=== PATIENT | female | born 1990 | race African-American/Black ===

== ENCOUNTER 2021-12-14 21:44 | Inpatient (IN) | payer OTHER ==
[~2021-12-14] VITALS: Ht 157.5 cm; Wt 71.8 kg
[2021-12-14] MEDS ORDERED: PRENTAB9 PO (22:17)
[2021-12-14] MEDS ORDERED: TUMS500C PO (22:17)
[2021-12-14 22:23] VITALS: BP 128/81
[2021-12-14] MEDS ORDERED: HOME MED LIST COMPLETE! XX SCH (22:30)
[2021-12-14] MEDS ORDERED: LACTATED RINGER'S 1000 ML IV STA (22:43)
[2021-12-14] MEDS ORDERED: LIDOCAINE 1% MDV 20ML VIAL INFIL PRN (22:45)
[2021-12-14] MEDS ORDERED: OXYTOCIN DRIP 30 UNITS in IV 1 EA IV PRN ×4 (22:45)
[2021-12-14 23:25] LABS: HEMOGLOBIN 11.1 g/dl (12.0-15.5); MEAN CORPUSCULAR HEMOGLOBIN 24.4 pg (27.0-33.0); MEAN CORPUSCULAR HGB CONC 34.7 g/dl (32.0-36.5); MEAN CORPUSCULAR VOLUME 70.5 fl (80.0-96.0); PLATELET COUNT, AUTOMATED 333 10^3/uL (150-450); RED BLOOD COUNT 4.54 10^6/uL (4.00-5.40)
[2021-12-14] MEDS: LR 1,000 ML IV SCH (23:26)
[2021-12-14] MEDS: CALCIUM CARBONATE 500 MG CHEW U/D PO PRN (23:33)
[2021-12-14 23:58] VITALS: BP 119/56
[2021-12-14] MEDS: miSOPROStol 25MCG 1/4 TABLET PO SCH (23:58)
[2021-12-15] VITALS (27 sets, daily range): BP systolic 111–146; BP diastolic 63–96
[2021-12-15] MEDS: miSOPROStol 25MCG 1/4 TABLET PO SCH (04:39)
[2021-12-15] MEDS: LR 1,000 ML IV SCH ×4 (06:07→22:45)
[2021-12-15] MEDS ORDERED: miSOPROStol 50MCG 1/2 TABLET PO SCH (08:30)
[2021-12-15] MEDS ORDERED: miSOPROStol 25MCG 1/4 TABLET PO ONE (17:20)
[2021-12-15] MEDS ORDERED: OXYTOCIN DRIP 30 UNITS in IV 1 EA IV SCH (21:00)
[2021-12-15] MEDS ORDERED: PENICILLIN G POTASSIUM IV 5 MU in D5W MINI-BAG PLUS 100 ML IV STA (21:58)
[2021-12-15] MEDS ORDERED: PENICILLIN G POTASSIUM IV 2.5 MU in IV 1 EA IV SCH (22:00)
[2021-12-15] MEDS ORDERED: FENTANYL 2MCG/ML ROPIVACAINE 0.2% IN 0.9% NACL 100ML IVBAG As Ordered ONE (22:18)
[2021-12-15] MEDS ORDERED: REFRIGERATOR IV KEYS XX PRN (22:53)
[2021-12-15] MEDS ORDERED: EPIDURAL/PCA KEYS XX PRN (22:53)
[2021-12-15] MEDS ORDERED: NALOXONE INJ 0.4MG/1ML VIAL (J2310 PER 1MG) IV PRN (22:53)
[2021-12-15] MEDS ORDERED: EPIDURAL COMMENT XX SCH (22:53)
[2021-12-15] MEDS ORDERED: diphenhydrAMINE 50MG/ML VIAL (J1200) IV PRN (22:53)
[2021-12-15] MEDS ORDERED: ONDANSETRON 4MG/2ML VIAL IV PRN (22:53)
[2021-12-15] MEDS ORDERED: ePHEDrine SULFATE 25 MG/5 ML(5MG/ML) SYRINGE IV PRN (22:53)
[2021-12-15] MEDS ORDERED: LACTATED RINGER'S 1000 ML IV PRN (22:53)
[2021-12-15] MEDS: CALCIUM CARBONATE 500 MG CHEW U/D PO PRN (23:35)
[2021-12-16] VITALS (18 sets, daily range): BP systolic 108–157; BP diastolic 59–99
[2021-12-16] MEDS: FENTANYL/ROPIVACAINE/NACL BAG 100 ML EPIDURAL SCH ×2 (00:39→08:53)
[2021-12-16] MEDS: LR 1,000 ML IV SCH (00:40)
[2021-12-16] MEDS: PENICILLIN G POTASSIUM IV 2.5 MU in IV 1 EA IV SCH ×5 (02:08→18:00)
[2021-12-16] MEDS ORDERED: ACETAMINOPHEN TAB 650MG DOSE (2X325MG) PO PRN (05:20)
[2021-12-16] MEDS ORDERED: MEASLES,MUMPS,RUBELLA VACCINE INJ (MMR-II) (90707) SC SCH (05:20)
[2021-12-16] MEDS ORDERED: RHOGAM 300 MCG (1500 IU) INJ (J2790) IM SCH (05:20)
[2021-12-16] MEDS ORDERED: IBUPROFEN 600MG TAB PO PRN (05:20)
[2021-12-16] MEDS ORDERED: DIBUCAINE 1% OINTMENT 30GM TOP PRN (05:20)
[2021-12-16] MEDS ORDERED: ONDANSETRON 4MG/2ML VIAL IV PRN (05:20)
[2021-12-16] MEDS ORDERED: OXYTOCIN DRIP 30 UNITS in IV 1 EA IV SCH (05:20)
[2021-12-16] MEDS: IBUPROFEN 800 MG TAB PO PRN ×2 (06:49→19:49)
[2021-12-16] MEDS: PRENATAL VITAMINS CHEWABLE TABLET PO SCH (08:23)
[2021-12-16] MEDS: DOCUSATE SODIUM 100MG CAPSULE PO PRN ×2 (11:15→19:48)
[2021-12-16] MEDS: ACETAMINOPHEN 500 MG TAB PO PRN (14:40)
[2021-12-17 05:29] VITALS: BP 131/74
[2021-12-17 08:44] LABS: HEMATOCRIT 25.9 % (36.0-47.0); MEAN CORPUSCULAR HEMOGLOBIN 24.9 pg (27.0-33.0); MEAN CORPUSCULAR HGB CONC 34.7 g/dl (32.0-36.5); MEAN CORPUSCULAR VOLUME 71.5 fl (80.0-96.0); PLATELET COUNT, AUTOMATED 281 10^3/uL (150-450); RED BLOOD COUNT 3.62 10^6/uL (4.00-5.40); WHITE BLOOD COUNT 15.2 10^3/uL (4.0-10.0)
[2021-12-17] MEDS: PRENATAL VITAMINS CHEWABLE TABLET PO SCH (09:04)
[2021-12-17] MEDS: ACETAMINOPHEN 500 MG TAB PO PRN (09:04)
[2021-12-17 09:07] LABS: ALBUMIN 2.5 GM/DL (3.2-5.2); ALT/SGPT 54 U/L (12-78); BILIRUBIN,TOTAL 0.7 MG/DL (0.2-1.0); BLOOD UREA NITROGEN 9 MG/DL (7-18); CALCIUM LEVEL 9.6 MG/DL (8.5-10.1); CARBON DIOXIDE LEVEL 23 MEQ/L (21-32); CHLORIDE LEVEL 108 MEQ/L (98-107); CREATININE FOR GFR 0.62 MG/DL (0.55-1.30); GLOMERULAR FILTRATION RATE > 60.0 (>60); GLUCOSE, FASTING 66 MG/DL (70-100); LDH LACTATE DEHYDROGENASE 355 U/L (84-246); POTASSIUM SERUM 3.9 MEQ/L (3.5-5.1); SODIUM LEVEL 140 MEQ/L (136-145); TOTAL PROTEIN 5.9 GM/DL (6.4-8.2)
[2021-12-17 10:45] VITALS: BP 121/78
[2021-12-17 14:50] VITALS: BP 131/86
[2021-12-17 18:00] VITALS: BP 125/82
[2021-12-17] MEDS: DOCUSATE SODIUM 100MG CAPSULE PO PRN (19:45)
[2021-12-17 22:00] VITALS: BP 118/54
[2021-12-18 02:00] VITALS: BP 104/52
[2021-12-18 06:00] VITALS: BP 129/80
[2021-12-18] MEDS: PRENATAL VITAMINS CHEWABLE TABLET PO SCH (07:38)
[2021-12-18] MEDS: ACETAMINOPHEN 500 MG TAB PO PRN (08:14)
[2021-12-18] MEDS ORDERED: COLA100C5 PO (08:14)
[2021-12-18] MEDS ORDERED: IBUP-1022 PO (08:14)
[2021-12-18 10:00] VITALS: BP 133/85
[2021-12-18] MEDS ORDERED: QC A650T3 PO (22:54)
[2021-12-18] MEDS ORDERED: PREN200C PO (22:54)
[2021-12-18] MEDS ORDERED: IBUP1TAB7 PO (22:54)
[2021-12-18] MEDS ORDERED: AMOX875T2 PO (23:13)
[2021-12-19] MEDS ORDERED: TRIA1CR80 TOP (21:55)
[2021-12-19] MEDS ORDERED: DIPH25CA32 PO (21:55)
== END 2021-12-18 12:45 | disposition home or self-care (01) | DRG 807 ==
LOC: M LDI 21:44 → M OBS 12-16 08:42
PROVIDERS: ADMIT Obstetrics & Gynecology; ATTEND Obstetrics & Gynecology
PROC: 3E0P7GC Introduction of Other Therapeutic Substance into Female Reproductive, Via Natural or Artificial Opening (ICD-10-PCS; 2021-12-14)
PROC: 10E0XZZ Delivery of Products of Conception, External Approach (ICD-10-PCS; principal; 2021-12-16)
PROC: 0KQM0ZZ Repair Perineum Muscle, Open Approach (ICD-10-PCS; 2021-12-16)
DX: O99.02 Anemia complicating childbirth (principal); Z37.0 Single live birth; D57.1 Sickle-cell disease without crisis; Z3A.40 40 weeks gestation of pregnancy; O70.1 Second degree perineal laceration during delivery

== ENCOUNTER 2021-12-18 22:27 | Emergency (ER) | payer OTHER ==
[~2021-12-18] VITALS: Ht 157.5 cm; Wt 68.2 kg
[~2021-12-18 22:27] MED LIST: COLA100C5 PO; IBUP-1022 PO; PRENTAB9 PO; TUMS500C PO
[2021-12-18 22:28] VITALS: BP 119/77
[2021-12-18] MEDS ORDERED: IBUP1TAB7 PO (22:54)
[2021-12-18] MEDS ORDERED: PREN200C PO (22:54)
[2021-12-18] MEDS ORDERED: QC A650T3 PO (22:54)
[2021-12-18] MEDS ORDERED: ACETAMINOPHEN 325 MG TAB PO ONE (23:00)
[2021-12-18] MEDS ORDERED: AUGMENTIN 875 MG TAB PO ONE (23:00)
[2021-12-18] MEDS ORDERED: AMOX875T2 PO (23:13)
[2021-12-19] MEDS ORDERED: TRIA1CR80 TOP (21:55)
[2021-12-19] MEDS ORDERED: DIPH25CA32 PO (21:55)
== END 2021-12-18 23:23 | disposition home or self-care (01) ==
LOC: M ED 22:27
DX: N61.0 Mastitis without abscess (principal); D57.1 Sickle-cell disease without crisis; D64.9 Anemia, unspecified

== ENCOUNTER 2021-12-19 20:12 | Emergency (ER) | payer OTHER ==
[~2021-12-19] VITALS: Ht 157.5 cm; Wt 68.2 kg
[~2021-12-19 20:12] MED LIST changes: +AMOX875T2 PO; +IBUP1TAB7 PO; +PREN200C PO; +QC A650T3 PO
[2021-12-19] MEDS ORDERED: diphenhydrAMINE 25MG CAP PO ONE (21:45)
[2021-12-19] MEDS ORDERED: DIPH25CA32 PO (21:55)
[2021-12-19] MEDS ORDERED: TRIA1CR80 TOP (21:55)
[2021-12-19 22:15] VITALS: BP 124/78
== END 2021-12-19 22:16 | disposition home or self-care (01) ==
LOC: M ED 20:12
DX: L25.9 Unspecified contact dermatitis, unspecified cause (principal); D57.1 Sickle-cell disease without crisis; N61.0 Mastitis without abscess

== ENCOUNTER 2021-12-20 20:23 | Emergency (ER) | payer OTHER ==
[~2021-12-20] VITALS: Ht 157.5 cm; Wt 68.2 kg
[2021-12-20 20:23] VITALS: BP 124/65
[~2021-12-20 20:23] MED LIST changes: +DIPH25CA32 PO; +TRIA1CR80 TOP
[2021-12-21] MEDS ORDERED: MILKSUS3 PO (00:14)
[2021-12-21] MEDS ORDERED: IBUP80TA PO (00:14)
[2021-12-21] MEDS ORDERED: MIRA3350 PO (08:40)
== END 2021-12-20 20:53 | disposition left against medical advice (07) ==
LOC: M ED 20:23
DX: Z53.21 Procedure and treatment not carried out due to patient leaving prior to being seen by health care provider (principal)

== ENCOUNTER 2021-12-21 00:05 | Emergency (ER) | payer OTHER ==
[~2021-12-21] VITALS: Ht 157.5 cm; Wt 68.2 kg
[2021-12-21] MEDS ORDERED: IBUP80TA PO (00:14)
[2021-12-21] MEDS ORDERED: MILKSUS3 PO (00:14)
[2021-12-21] MEDS ORDERED: MAGNESIUM CITRATE 300 ML BTL PO ONE (06:20)
[2021-12-21] MEDS ORDERED: GLYCERIN ADULT SUPP PR ONE (06:20)
[2021-12-21] MEDS ORDERED: MIRA3350 PO (08:40)
[2021-12-21] MEDS ORDERED: FLEET ENEMA PR PRN (08:50)
[2021-12-21 10:41] VITALS: BP 134/91
== END 2021-12-21 10:44 | disposition home or self-care (01) ==
LOC: M ED 00:05
DX: O99.63 Diseases of the digestive system complicating the puerperium (principal); O99.13 Other diseases of the blood and blood-forming organs and certain disorders involving the immune mechanism complicating the puerperium; O91.22 Nonpurulent mastitis associated with the puerperium

== ENCOUNTER 2022-01-02 02:03 | Inpatient (IN) | payer OTHER ==
[~2022-01-02] VITALS: Ht 157.5 cm; Wt 62.8 kg
[~2022-01-02 02:03] MED LIST changes: +IBUP80TA PO; +MILKSUS3 PO; +MIRA3350 PO
[2022-01-02] MEDS ORDERED: ACETAMINOPHEN TAB 650MG DOSE (2X325MG) PO ONE (02:30)
[2022-01-02] MEDS ORDERED: NS 1,000 ML IV ONE (03:30)
[2022-01-02] MEDS ORDERED: MORPHINE 4 MG/ML 1ML VIAL/SYRINGE IV ONE (03:30)
[2022-01-02] MEDS ORDERED: IBUPROFEN 800 MG TAB PO ONE (04:20)
[2022-01-02 04:32] LABS: BASO # 0.1 10^3/uL (0.0-0.2); BASO % 0.6 % (0.0-1.0); EOS % 0.3 % (0.0-3.0); HEMATOCRIT 35.3 % (36.0-47.0); HEMOGLOBIN 11.8 g/dl (12.0-15.5); LYMPH # 2.4 10^3/uL (1.5-5.0); LYMPH % 21.5 % (24.0-44.0); MEAN CORPUSCULAR HEMOGLOBIN 23.1 pg (27.0-33.0); MEAN CORPUSCULAR HGB CONC 33.4 g/dl (32.0-36.5); MEAN CORPUSCULAR VOLUME 69.2 fl (80.0-96.0); MONO # 0.6 10^3/uL (0.0-0.8); MONO % 5.6 % (2.0-8.0); NEUTROPHILS % 70.8 % (36.0-66.0); PLATELET COUNT, AUTOMATED 460 10^3/uL (150-450); WHITE BLOOD COUNT 11.2 10^3/uL (4.0-10.0)
[2022-01-02 04:54] LABS: BLOOD UREA NITROGEN 9 MG/DL (7-18); C REACTIVE PROTEIN QUANTITATIV 3.03 MG/DL (0.00-0.30); CALCIUM LEVEL 9.4 MG/DL (8.5-10.1); CARBON DIOXIDE LEVEL 23 MEQ/L (21-32); CHLORIDE LEVEL 109 MEQ/L (98-107); CREATININE FOR GFR 0.92 MG/DL (0.55-1.30); GLOMERULAR FILTRATION RATE > 60.0 (>60); GLUCOSE, FASTING 103 MG/DL (70-100); MAGNESIUM LEVEL 2.1 MG/DL (1.8-2.4); POTASSIUM SERUM 4.3 MEQ/L (3.5-5.1); SODIUM LEVEL 138 MEQ/L (136-145)
[2022-01-02] MEDS ORDERED: HOME MED LIST COMPLETE! XX SCH (05:40)
[2022-01-02] MEDS ORDERED: NS 1,000 ML IV SCH (05:50)
[2022-01-02 06:27] LABS: RSV AMPLIFICATION NEGATIVE (NEGATIVE)
[2022-01-02 08:00] VITALS: BP 98/51
[2022-01-02] MEDS ORDERED: cefTRIAXone SOD 1 GM in D5W MINI-BAG PLUS 50 ML IV SCH (08:00)
[2022-01-02] MEDS ORDERED: CEFD300C41 PO (08:07)
[2022-01-02] MEDS ORDERED: HEPARIN SOD (PORCINE) 5000UNITS/ML 1ML VIAL/SYRINGE SC SCH (09:00)
[2022-01-02] MEDS ORDERED: IBUPROFEN 400MG TAB PO PRN (10:00)
== END 2022-01-02 10:00 | disposition home or self-care (01) | DRG 812 ==
LOC: M ED 02:03 → M MS5PR 05:49 → M ED INP 05:49 → ENRESERV 07:19 → M MS5PR 07:51
PROVIDERS: ADMIT Family Medicine; ATTEND Family Medicine
DX: D57.1 Sickle-cell disease without crisis (principal); R30.0 Dysuria; Z20.822 Contact with and (suspected) exposure to COVID-19; M79.661 Pain in right lower leg; M79.662 Pain in left lower leg

== ENCOUNTER 2022-11-29 08:41 | Observation (INO) | payer OTHER ==
[~2022-11-29] VITALS: Ht 157.5 cm; Wt 70.2 kg
[~2022-11-29 08:41] MED LIST changes: +ACET325C5 PO; +CAFF200T PO; +CEFD300C41 PO; +DIAL1WAF PO; +DIPH-435 PO; -DIPH25CA32 PO; +FEOS200T2 PO; +FLUO1TAB
[2022-11-29] MEDS ORDERED: CARB15DR37 OU (09:04)
[2022-11-29] MEDS ORDERED: TRAZ-252 PO (09:04)
[2022-11-29 10:07] LABS: BASO # 0.1 10^3/uL (0.0-0.2); BASO % 0.4 % (0.0-1.0); EOS # 0.1 10^3/uL (0.0-0.5); EOS % 0.4 % (0.0-3.0); HEMATOCRIT 37.1 % (36.0-47.0); HEMOGLOBIN 12.7 g/dl (12.0-15.5); LYMPH % 15.4 % (24.0-44.0); MEAN CORPUSCULAR HEMOGLOBIN 23.6 pg (27.0-33.0); MEAN CORPUSCULAR HGB CONC 34.2 g/dl (32.0-36.5); MEAN CORPUSCULAR VOLUME 69.1 fl (80.0-96.0); MONO % 7.6 % (2.0-8.0); NEUTROPHILS % 75.5 % (36.0-66.0); PLATELET COUNT, AUTOMATED 400 10^3/uL (150-450); RED BLOOD COUNT 5.37 10^6/uL (4.00-5.40); WHITE BLOOD COUNT 13.3 10^3/uL (4.0-10.0)
[2022-11-29 10:26] LABS: LIPASE 24 U/L (12-53)
[2022-11-29 10:28] LABS: ALBUMIN 4.2 G/DL (3.2-5.2); ALKALINE PHOSPHATASE 78 U/L (46-116); ALT/SGPT 16 U/L (7.0-40); AST/SGOT 20 U/L (<34); BILIRUBIN,DIRECT 0.4 MG/DL (<0.4); BILIRUBIN,TOTAL 1.1 MG/DL (0.3-1.2); BLOOD UREA NITROGEN 9 MG/DL (9-23); CALCIUM LEVEL 9.7 MG/DL (8.5-10.1); CARBON DIOXIDE LEVEL 24 MMOL/L (20-31); CHLORIDE LEVEL 106 MMOL/L (98-107); CREATININE FOR GFR 0.66 MG/DL (0.55-1.30); GLOMERULAR FILTRATION RATE > 60.0 (>60); GLUCOSE, FASTING 91 MG/DL (60-100); POTASSIUM SERUM 4.3 MMOL/L (3.5-5.1); SODIUM LEVEL 140 MMOL/L (136-145); TOTAL PROTEIN 7.3 G/DL (5.7-8.2)
[2022-11-29] MEDS ORDERED: MORPHINE 4 MG/ML 1ML VIAL IV ONE ×2 (11:15→13:20)
[2022-11-29] MEDS ORDERED: NS 500 ML IV ONE (11:15)
[2022-11-29] MEDS ORDERED: ISOVUE-370 76% 100ML VIAL As Ordered ONE (11:23)
[2022-11-29] MEDS ORDERED: cefTRIAXone SOD 1 GM in D5W MINI-BAG PLUS 50 ML IV ONE (13:20)
[2022-11-29] MEDS ORDERED: AZITHROMYCIN 250MG TABLET PO ONE (13:20)
[2022-11-29] MEDS ORDERED: MORPHINE 2 MG/ML 1ML VIAL IV PRN (14:15)
[2022-11-29] MEDS ORDERED: MORPHINE 4 MG/ML 1ML VIAL IV PRN (14:15)
[2022-11-29] MEDS ORDERED: NS 1,000 ML IV SCH (14:50)
[2022-11-29] MEDS ORDERED: ACET1TAB55 PO (14:58)
[2022-11-29] MEDS ORDERED: FLUO20CA22 PO (14:59)
[2022-11-29] MEDS ORDERED: FLUO10CA18 PO (14:59)
[2022-11-29] MEDS ORDERED: DICL1GEL3 TOP (14:59)
[2022-11-29] MEDS ORDERED: DEPO150I12 IM (14:59)
[2022-11-29] MEDS ORDERED: ALLE1TAB23 PO (14:59)
[2022-11-29] MEDS ORDERED: FERR1TAB8 PO (14:59)
[2022-11-29] MEDS ORDERED: HOME MED LIST COMPLETE! XX SCH (15:00)
[2022-11-29] MEDS ORDERED: IBUPROFEN 400MG TAB PO PRN (15:25)
[2022-11-29] MEDS: NS 1,000 ML IV SCH ×2 (15:26→23:50)
[2022-11-29 15:30] LABS: RSV AMPLIFICATION NEGATIVE (NEGATIVE)
[2022-11-29] MEDS: DOXYCYCLINE HYCLATE 100 MG in D5W MINI-BAG PLUS 100 ML IV SCH (16:58)
[2022-11-29 18:07] LABS: ABG BASE EXCESS -1.3 (-2.0-2.0); ABG HCO3 23.4 MMOL/L (22.0-26.0); ABG O2 SATURATION 96.3 % (95.0-99.0); ABG PARTIAL PRESSURE CO2 39.2 mmHg (35.0-45.0); ABG PARTIAL PRESSURE O2 87.4 mmHg (75.0-100.0); ABG STANDARD HCO3 23.4 MMOL/L. (22.0-26.0); ABG TOTAL CO2 24.6 MMOL/L (22.0-29.0); ABG pH (ARTERIAL) 7.394 UNITS (7.350-7.450)
[2022-11-29] MEDS ORDERED: traZODone 50 MG TAB PO SCH (21:00)
[2022-11-29] MEDS: HEPARIN SOD (PORCINE) 5000UNITS/ML 1ML VIAL/SYRINGE SC SCH (21:13)
[2022-11-29 23:51] VITALS: BP 130/79
[2022-11-30] MEDS: DOXYCYCLINE HYCLATE 100 MG in D5W MINI-BAG PLUS 100 ML IV SCH (03:16)
[2022-11-30] MEDS: HEPARIN SOD (PORCINE) 5000UNITS/ML 1ML VIAL/SYRINGE SC SCH (05:56)
[2022-11-30 06:08] VITALS: BP 111/70
[2022-11-30 06:55] LABS: BASO % 0.4 % (0.0-1.0); EOS # 0.1 10^3/uL (0.0-0.5); EOS % 1.1 % (0.0-3.0); HEMATOCRIT 30.7 % (36.0-47.0); HEMOGLOBIN 10.8 g/dl (12.0-15.5); LYMPH # 2.4 10^3/uL (1.5-5.0); LYMPH % 23.2 % (24.0-44.0); MEAN CORPUSCULAR HEMOGLOBIN 24.1 pg (27.0-33.0); MEAN CORPUSCULAR HGB CONC 35.2 g/dl (32.0-36.5); MEAN CORPUSCULAR VOLUME 68.5 fl (80.0-96.0); MONO # 0.9 10^3/uL (0.0-0.8); MONO % 9.2 % (2.0-8.0); NEUTROPHILS # 6.7 10^3/uL (1.5-8.5); NEUTROPHILS % 65.5 % (36.0-66.0); PLATELET COUNT, AUTOMATED 327 10^3/uL (150-450); RED BLOOD COUNT 4.48 10^6/uL (4.00-5.40); WHITE BLOOD COUNT 10.2 10^3/uL (4.0-10.0)
[2022-11-30 07:08] LABS: BLOOD UREA NITROGEN 8 MG/DL (9-23); CALCIUM LEVEL 8.5 MG/DL (8.5-10.1); CARBON DIOXIDE LEVEL 23 MMOL/L (20-31); CHLORIDE LEVEL 109 MMOL/L (98-107); CREATININE FOR GFR 0.72 MG/DL (0.55-1.30); GLOMERULAR FILTRATION RATE > 60.0 (>60); GLUCOSE, FASTING 90 MG/DL (60-100); MAGNESIUM LEVEL 1.7 MG/DL (1.8-2.4); POTASSIUM SERUM 4.1 MMOL/L (3.5-5.1); SODIUM LEVEL 140 MMOL/L (136-145)
[2022-11-30] MEDS: MAG SULF 1GM/100ML (MAG RUN) 1 GM in IV 1 EA IV SCH ×2 (07:53→09:10)
[2022-11-30] MEDS ORDERED: IBUPROFEN 600MG TAB PO PRN (07:55)
[2022-11-30] MEDS: NS 1,000 ML IV SCH (07:59)
[2022-11-30] MEDS ORDERED: FLUoxetine 20MG CAP PO SCH (09:00)
[2022-11-30] MEDS ORDERED: FLUoxetine 10 MG CAP PO SCH (09:00)
[2022-11-30] MEDS ORDERED: DOXY-444 PO (09:28)
[2022-11-30] MEDS ORDERED: CEFD300C41 PO (09:28)
[2022-11-30] MEDS ORDERED: IBUP-1114 PO (09:28)
[2022-11-30] MEDS ORDERED: PANT20TA6 PO (09:28)
[2022-11-30] MEDS ORDERED: PROBCAP14 PO (09:30)
[2022-11-30] MEDS ORDERED: cefTRIAXone SOD 1 GM in D5W MINI-BAG PLUS 50 ML IV SCH (13:00)
[2022-12-05] MEDS ORDERED: MAGN400T2 PO ×3 (14:38→17:07)
== END 2022-11-30 11:40 | disposition home or self-care (01) ==
LOC: EDBD 08:41 → M ED 08:41 → M ED INP 14:32 → M MS5PR 16:45
PROVIDERS: ADMIT Internal Medicine; ATTEND Internal Medicine
DX: J18.9 Pneumonia, unspecified organism (principal); M94.0 Chondrocostal junction syndrome [Tietze]; K82.4 Cholesterolosis of gallbladder; F41.9 Anxiety disorder, unspecified; F32.A Depression, unspecified; D57.1 Sickle-cell disease without crisis; Z79.899 Other long term (current) drug therapy; G47.00 Insomnia, unspecified
CPT/HCPCS: 36415; 36600; 71275; 74177; 76705; 80047; 80048; 80076; 82803; 83690; 83735; 84145; 84484; 84702; 85025; 87040; 87631; 93005; 93971; 96361; 96365; 96366; 96372; 96375; 96376; 99285; J0696; J3475; Q9967

== ENCOUNTER 2022-12-01 20:19 | Inpatient (IN) | payer OTHER ==
[~2022-12-01] VITALS: Ht 157.5 cm; Wt 70.9 kg
[~2022-12-01 20:19] MED LIST changes: +ACET1TAB55 PO; +ALLE1TAB23 PO; +CARB15DR37 OU; +DEPO150I12 IM; +DICL1GEL3 TOP; +DOXY-444 PO; +FERR1TAB8 PO; +FLUO10CA18 PO; +FLUO20CA22 PO; +IBUP-1114 PO; +PANT20TA6 PO; +PROBCAP14 PO; +TRAZ-252 PO
[2022-12-01 22:03] VITALS: BP 124/74
[2022-12-01] MEDS ORDERED: HYDROMORPHONE HCL 0.5 MG/ 0.5 ML SYRINGE IV PRN (23:40)
[2022-12-01] MEDS ORDERED: ACETAMINOPHEN TAB 650MG DOSE (2X325MG) PO PRN (23:40)
[2022-12-01] MEDS ORDERED: NS 1,000 ML IV SCH (23:40)
[2022-12-01] MEDS ORDERED: NS 500 ML IV ONE (23:40)
[2022-12-02] MEDS ORDERED: RISATAB3 PO (01:42)
[2022-12-02] MEDS ORDERED: IBUP1TAB5 PO (01:42)
[2022-12-02] MEDS ORDERED: CEFD300CAP PO (01:42)
[2022-12-02] MEDS ORDERED: DOXY-443 PO (01:42)
[2022-12-02] MEDS ORDERED: PANT20TA6 PO (01:42)
[2022-12-02] MEDS ORDERED: PREDOPD OU (01:48)
[2022-12-02] MEDS ORDERED: HOME MED LIST COMPLETE! XX SCH (01:50)
[2022-12-02 05:50] VITALS: BP 130/90
[2022-12-02 06:11] LABS: HEMATOCRIT 31.6 % (36.0-47.0); HEMOGLOBIN 10.6 g/dl (12.0-15.5); MEAN CORPUSCULAR HEMOGLOBIN 23.4 pg (27.0-33.0); MEAN CORPUSCULAR HGB CONC 33.5 g/dl (32.0-36.5); MEAN CORPUSCULAR VOLUME 69.8 fl (80.0-96.0); PLATELET COUNT, AUTOMATED 323 10^3/uL (150-450); RED BLOOD COUNT 4.53 10^6/uL (4.00-5.40); WHITE BLOOD COUNT 7.9 10^3/uL (4.0-10.0)
[2022-12-02 07:14] LABS: ALBUMIN 3.2 G/DL (3.2-5.2); ALKALINE PHOSPHATASE 57 U/L (46-116); ALT/SGPT 21 U/L (7.0-40); AST/SGOT 20 U/L (<34); BILIRUBIN,TOTAL 0.7 MG/DL (0.3-1.2); BLOOD UREA NITROGEN 10 MG/DL (9-23); CALCIUM LEVEL 8.7 MG/DL (8.5-10.1); CARBON DIOXIDE LEVEL 22 MMOL/L (20-31); CHLORIDE LEVEL 111 MMOL/L (98-107); GLOMERULAR FILTRATION RATE > 60.0 (>60); GLUCOSE, FASTING 93 MG/DL (60-100); POTASSIUM SERUM 4.2 MMOL/L (3.5-5.1); SODIUM LEVEL 141 MMOL/L (136-145); TOTAL PROTEIN 5.9 G/DL (5.7-8.2)
[2022-12-02] MEDS ORDERED: MORPHINE 2 MG/ML 1ML VIAL IV PRN ×2 (07:30)
[2022-12-02] MEDS: PANTOPRAZOLE 40MG TAB (PROTONIX) PO SCH (08:25)
[2022-12-02] MEDS: IBUPROFEN 400MG TAB PO SCH ×3 (08:27→20:48)
[2022-12-02] MEDS: ENOXAPARIN 40MG/0.4ML SYRINGE (J1650 PER 10MG) SC SCH (08:28)
[2022-12-02] MEDS: FLUoxetine 10 MG CAP PO SCH (10:12)
[2022-12-02] MEDS: DOXYCYCLINE HYCLATE 100MG TABLET PO SCH ×2 (11:25→20:47)
[2022-12-02] MEDS: CEFDINIR 300 MG CAP (OMNICEF) PO SCH ×2 (11:25→20:47)
[2022-12-02] MEDS: NS 1,000 ML IV SCH ×2 (11:26→18:05)
[2022-12-02 14:00] VITALS: BP 123/78
[2022-12-02] MEDS ORDERED: cefTRIAXone SOD 1 GM in D5W MINI-BAG PLUS 50 ML IV SCH (17:00)
[2022-12-02] MEDS ORDERED: AZITHROMYCIN INJ 500 MG, VIAL MATE ADAPTER 1 EACH in D5W 250 ML IV SCH (18:00)
[2022-12-02 20:00] VITALS: BP 144/93
[2022-12-02] MEDS ORDERED: traZODone 50 MG TAB PO SCH (21:00)
[2022-12-03] MEDS: NS 1,000 ML IV SCH ×2 (02:29→10:15)
[2022-12-03] MEDS: IBUPROFEN 400MG TAB PO SCH (05:17)
[2022-12-03] MEDS ORDERED: BENZONATATE 100MG CAPSULE PO PRN (05:20)
[2022-12-03 06:00] VITALS: BP 118/78
[2022-12-03 06:21] LABS: HEMATOCRIT 31.2 % (36.0-47.0); HEMOGLOBIN 10.6 g/dl (12.0-15.5); MEAN CORPUSCULAR HEMOGLOBIN 23.5 pg (27.0-33.0); MEAN CORPUSCULAR VOLUME 69.2 fl (80.0-96.0); PLATELET COUNT, AUTOMATED 386 10^3/uL (150-450); RED BLOOD COUNT 4.51 10^6/uL (4.00-5.40)
[2022-12-03 06:44] LABS: BLOOD UREA NITROGEN 11 MG/DL (9-23); CALCIUM LEVEL 8.7 MG/DL (8.5-10.1); CARBON DIOXIDE LEVEL 23 MMOL/L (20-31); CHLORIDE LEVEL 113 MMOL/L (98-107); CREATININE FOR GFR 0.73 MG/DL (0.55-1.30); GLOMERULAR FILTRATION RATE > 60.0 (>60); GLUCOSE, FASTING 87 MG/DL (60-100); MAGNESIUM LEVEL 1.6 MG/DL (1.8-2.4); PHOSPHORUS LEVEL 4.4 MG/DL (2.5-4.9); POTASSIUM SERUM 4.4 MMOL/L (3.5-5.1); SODIUM LEVEL 143 MMOL/L (136-145)
[2022-12-03] MEDS ORDERED: FLUoxetine 20MG CAP PO SCH (09:00)
[2022-12-03] MEDS: ENOXAPARIN 40MG/0.4ML SYRINGE (J1650 PER 10MG) SC SCH (09:00)
[2022-12-03] MEDS: FLUoxetine 10 MG CAP PO SCH (09:12)
[2022-12-03] MEDS: PANTOPRAZOLE 40MG TAB (PROTONIX) PO SCH (09:13)
[2022-12-03] MEDS: DOXYCYCLINE HYCLATE 100MG TABLET PO SCH (09:13)
[2022-12-03] MEDS: CEFDINIR 300 MG CAP (OMNICEF) PO SCH (09:13)
[2022-12-03] MEDS: MAG SULF 1GM/100ML (MAG RUN) 1 GM in IV 1 EA IV SCH ×2 (10:00→11:00)
[2022-12-03] MEDS ORDERED: OXYC1TAB23 PO (11:21)
[2022-12-05] MEDS ORDERED: MAGN400T2 PO ×3 (14:38→17:07)
[2022-12-06 14:09] LABS: BODY FLUID CULTURE Not indicated. (.); LEGIONELLA ANTIGEN URINE Negative (Negative); ORGANISM ID Not indicated. (.); SPECIMEN SOURCE Urine (.); URINE STREP PNEUMONIAE ANTIGEN Negative (Negative)
== END 2022-12-03 13:45 | disposition home or self-care (01) | DRG 556 ==
LOC: M MSPAV 22:05
PROVIDERS: ADMIT Internal Medicine; ATTEND Internal Medicine
DX: M25.511 Pain in right shoulder (principal); D57.20 Sickle-cell/Hb-C disease without crisis; G43.909 Migraine, unspecified, not intractable, without status migrainosus; F41.8 Other specified anxiety disorders; R10.11 Right upper quadrant pain; G47.00 Insomnia, unspecified; E83.42 Hypomagnesemia; K82.4 Cholesterolosis of gallbladder; M54.9 Dorsalgia, unspecified; R07.89 Other chest pain; Z79.2 Long term (current) use of antibiotics; Z79.899 Other long term (current) drug therapy; Z79.52 Long term (current) use of systemic steroids; Z91.048 Other nonmedicinal substance allergy status